=== PATIENT | female | born 1940 | race Caucasian/White ===

== ENCOUNTER 2017-06-13 10:27 | Inpatient (IN) ==
[2017-06-13 11:06] LABS: MANUAL DIFF NEEDED? NO
[2017-06-13 11:14] LABS: BASO% 0.4 % (0.0-0.8); EOS# 0.19 X1000 (0.0-0.7); EOS% 3.4 % (0.0-10.0); HEMATOCRIT 34.7 % (37.0-47.0); LYMPH# 0.92 X1000 (1.2-3.4); LYMPH% 16.5 % (20.5-51.1); MCH 25.8 PG (27-31); MCHC 31.7 g/dL (33-37); MCV 81.5 FL (81-99); MONO# 0.52 X1000 (0.11-0.59); MONO% 9.3 % (1.7-9.3); MPV 10.3 FL (7.4-10.4); NEUT% 70.4 % (42.2-75.2); PLT 516 X1000 (130-400); RBC 4.26 XMIL (4.2-5.4)
[2017-06-13 11:27] LABS: AGAP 14; ALBUMIN 3.3 g/dL (3.5-5.0); ALKALINE PHOSPHATASE 110 U/L (32-104); BUN 20 mg/dL (8-22); CALCIUM 8.6 mg/dL (8.8-10.2); CHLORIDE 98 mmol/L (98-107); COSMO 276; GOT 26 U/L (10-30); GPT 19 U/L (10-36); POTASSIUM 3.8 mmol/L (3.5-5.1); SODIUM 137 mmol/L (136-145); TCO2 25 mmol/L (25-35); TOTAL BILIRUBIN 0.27 mg/dL (0.20-1.00); TOTAL PROTEIN 6.4 g/dL (6.3-8.3)
[2017-06-13] MEDS ORDERED: PERCOCET-5 PO ONE (11:59)
--- NOTE | 2017-06-13 12:38 | Diag Imaging Result Doc PS360 ---
FEMUR MIN 2 VIEWS RIGHT - 06/13/2017 INDICATION: Fall TECHNIQUE: Two views COMPARISON: None FINDINGS: Bones are intact and normally aligned. Joint spaces and soft tissues are clear. IMPRESSION: Negative exam. Electronically signed by Dino Pinzon 06/13/2017 12:36 PM
--- NOTE | 2017-06-13 12:39 | Diag Imaging Result Doc PS360 ---
KNEE 3 VIEWS RIGHT - 06/13/2017 INDICATION: Fall TECHNIQUE: COMPARISON: None FINDINGS: There is some calcified peripheral vascular disease of the popliteal artery. Bones are intact and normally aligned. Joint spaces and soft tissues are clear. IMPRESSION: Negative exam. Electronically signed by Dino Pinzon 06/13/2017 12:36 PM
--- NOTE | 2017-06-13 12:41 | Diag Imaging Result Doc PS360 ---
XRAY PELVIS W/HIP 2-3VW RT - 06/13/2017 INDICATION: Fall/pain TECHNIQUE: Three views COMPARISON: None FINDINGS: There is a transverse minimally displaced fracture through the tip of the greater trochanter. No femoral neck or intertrochanteric fracture visible. IMPRESSION: Greater trochanter fracture of the right proximal femur. Electronically signed by Dino Pinzon 06/13/2017 12:39 PM
--- NOTE | 2017-06-13 12:50 | Diag Imaging Result Doc PS360 ---
LUMBAR SPINE - 06/13/2017 INDICATION: Fall TECHNIQUE: Six views COMPARISON: None FINDINGS: There is mild exaggeration of the normal lumbar lordosis. No fracture or subluxation. There is dense vascular disease with calcification of the aortic bifurcation. Vertebral body heights are preserved. Disc spaces are fairly well preserved. There is significant facet degeneration at all the levels from L3-S1 bilaterally. There is also some degeneration of the sacroiliac joints. IMPRESSION: Degenerative changes. No definite acute injury. Electronically signed by Dino Pinzon 06/13/2017 12:48 PM
[2017-06-13 14:03] LABS: URINE SOURCE CLEAN CATCH
[2017-06-13 14:06] LABS: BILIRUBIN URINE NEGATIVE (NEGATIVE); BLOOD URINE MODERATE (NEGATIVE); COLOR ORANGE; GLUCOSE URINE NEGATIVE (NEGATIVE); LEUKOCYTES URINE LARGE (NEGATIVE); NITRITE URINE POSITIVE (NEGATIVE); PROTEIN URINE TRACE mg/dL (NEGATIVE); SP GRAVITY URINE 1.009; TURBIDITY URINE TURBID (CLEAR); UROBILINOGEN URINE NORMAL (NORMAL)
[2017-06-13 14:08] LABS: URINE MICRO REVIEW NEEDED? YES
[2017-06-13 14:11] LABS: UR EPITHELIAL CELLS <10 /HPF (<10); URINE BACTERIA 4+ /HPF; URINE CULTURE NEEDED? YES; URINE RBC TNTC /HPF (<10); URINE WBC TNTC /HPF (<10)
[2017-06-13 14:22] LABS: URINE CASTS GRANULAR PRESENT; URINE CRYSTALS NONE SEEN
--- NOTE | 2017-06-13 14:52 | Diag Imaging Result Doc PS360 ---
CT PELVIS W/O CONTRAST - 06/13/2017 INDICATION: R hip fracture ed10 TECHNIQUE: A CT dose reduction protocol was used. COMPARISON: Prior x-ray FINDINGS: There is a comminuted mildly displaced fracture of the right greater trochanter. This involves the base of the femoral neck posteriorly but not anteriorly. The urinary bladder is very distended. There is mild constipation. No dislocations. IMPRESSION: Comminuted fracture of the right greater trochanter with a fracture line entering the posterior cortex of the femoral neck. Remainder of the femoral neck is intact. Electronically signed by Dino Pinzon 06/13/2017 2:49 PM
--- NOTE | 2017-06-13 15:20 | PROVIDER DOCUMENTATION ---
This chart was entered by Jessica Arevalo Scribe, acting as scribe for Lacy Kirby MD. HPI-Musculoskeletal Pain/Inj - GENERAL Chief Complaint: Extremity Pain Stated Complaint: fall, rt hip, rt leg pain Time Seen by Provider: 06/13/17 11:15 Source: patient - HX OF PRESENT ILLNESS-MUSKULOSKELTAL Nature of Presenting Problem: Pt is a 76 year old female who came to the ED with a cc of not being able to get out of bed for six hours. Pt fell about two and a half weeks ago and hurt her right hip and followed up with her pcp and nothing was broken. Pt reports the symptoms are worsening and the pain is radiating from her right hip down to her right knee. Pt reports she has urinary incontinence. Denies chest pain, n/v , and fever. Quality of Pain: reports: sharp Severity in ED: moderate Onset/Duration: gradual Timing: still present Modifying Factors: improves with: movement Any recent injury?: Yes (two weeks ago fell on right hip ) Locality of Occurance: Home Similar Symptoms Previously?: No Recently seen or treated by another doctor?: Yes - FALL INJURY Location of Pain/Injury: reports: pelvis (right hip) Pain Radiation: reports: legs (lower) Reason for Fall: reports: unknown Loss of Consciousness: no loss of consciousness Injury Associated Symptoms: reports: weakness, trouble walking Review of Systems - Adult - REVIEW OF SYSTEMS - ADULT Constitutional: denies: chills, fever Eyes: denies: blurred vision, double vision Ears, Nose, Mouth & Throat: reports: no symptoms reported Cardiovascular: reports: no symptoms reported Respiratory: denies: cough, shortness of breath Gastrointestinal: reports: no symptoms reported Genitourinary: reports: no symptoms reported Musculoskeletal: reports: bone pain (right hip and leg), muscle weakness. denies: joint pain, joint swelling, neck pain Integumentary: reports: no symptoms reported Neurological: denies: ataxia, numbness, seizure Psychiatric: reports: no symptoms reported Endocrine: reports: no symptoms reported Hematologic/Lymphatic: reports: no symptoms reported Allergic/Immunologic: reports: no symptoms reported All Other Systems: Reviewed and Negative Past History - Adult - PAST MEDICAL HISTORY-ADULT Review of Records: reports: Old Records Reviewed, Nursing Assessment Review Major Childhood Illnesses: reports: denies history Cardiovascular: reports: HTN Respiratory: reports: denies history Gastrointestinal: reports: denies history Obstetrical/Gynecological: reports: denies history Genitourinary: reports: denies history Musculoskeletal: reports: denies history Neurological: reports: CVA, Parkinson's Endocrine/Immune: reports: denies history Other Conditions: reports: denies history - IMMUNIZATION STATUS Childhood Immunizations: See Nurse Assessment Flu Vaccine: See Nurse Assessment - FAMILY HISTORY Family History: reviewed, not pertinent Physical Exam-Injury Related - Physical Exam-Injury Related Initial Vital Signs Reviewed: Yes General Appearance: alert, mild distress Eyes: PERRL/EOMI, pink conjunctivae Head, Ears, Nose, Mouth & Throat: normocephalic/atraumatic, moist mucous membranes Neck: non-tender, full range of motion Respiratory: chest non-tender, lungs clear, normal breath sounds Cardiovascular: normal peripheral pulses, regular rate, rhythm Abdominal Exam: normal bowel sounds, non tender, soft Back Exam: normal inspection, no CVA tenderness Extremity: pedal edema (right leg 1+), tenderness (right hip unable to bear weight and bend. The right hip there is a healing bruise.). negative: normal gait Integumentary: normal color, warm/dry Neurologic: grossly normal Psych/Mental Status: normal mood/affect, normal thought content, normal thought process, oriented x 3 - Glascow Coma Score Best Eye Response ([place]): (4) open spontaneously Best Verbal Response ([place]): (5) oriented Best Motor Response ([place]): (6) obeys commands [place] Total: 15 Progress - PLAN OF CARE/RESULTS Progress/Plan/Lab Results: Vital Signs - 8 hr 06/13/17 10:42 06/13/17 14:08 Temperature 97.5 F L 98.2 F Pulse Rate 69 79 Respiratory Rate 16 18 Blood Pressure 178/85 172/76 O2 Sat by Pulse Oximetry 97 100 Laboratory Results - last 24 hr 06/13/17 06/13/17 06/13/17 10:54 10:54 10:54 WBC 5.57 RBC 4.26 Hgb 11.0 L Hct 34.7 L MCV 81.5 MCH 25.8 L MCHC 31.7 L RDW Std Deviation 17.9 H Plt Count 516 H MPV 10.3 Immature Gran % (Auto) 0.0 Neut % (Auto) 70.4 Lymph % (Auto) 16.5 L [place] % (Auto) 9.3 Eos % (Auto) 3.4 Baso % (Auto) 0.4 Immature Gran # (Auto) 0.00 Neut # (Auto) 3.92 Lymph # (Auto) 0.92 L [place] # (Auto) 0.52 Eos # (Auto) 0.19 Baso # (Auto) 0.02 D-Dimer 0.96 H Sodium 137 Potassium 3.8 Chloride 98 Carbon Dioxide 25 Anion Gap 14 BUN 20 Creatinine 0.6 Estimated GFR/1.73 m2 > 60 BUN/Creatinine Ratio 33 Glucose 84 Calculated Osmolality 276 Calcium 8.6 L Magnesium Total Bilirubin 0.27 AST 26 ALT 19 Alkaline Phosphatase 110 H Total Protein 6.4 Albumin 3.3 L Globulin 3.1 Albumin/Globulin Ratio 1.1 Urine Source Urine Color Urine Turbidity Urine pH Ur Specific [place] Urine Protein Ur Glucose (Stick) Ur Ketones (Stick) Urine Blood Urine Nitrite Urine Bilirubin Urobilinogen Dipstick Urine Leukocytes Urine WBC (Auto) Urine RBC (Auto) U Epithel Cells (Auto) Urine Bacteria (Auto) Urine Crystals Small Round Cells Urine Casts Urine Yeast-like Cells 06/13/17 06/13/17 10:54 13:48 WBC RBC Hgb Hct MCV MCH MCHC RDW Std Deviation Plt Count MPV Immature Gran % (Auto) Neut % (Auto) Lymph % (Auto) [place] % (Auto) Eos % (Auto) Baso % (Auto) Immature Gran # (Auto) Neut # (Auto) Lymph # (Auto) [place] # (Auto) Eos # (Auto) Baso # (Auto) D-Dimer Sodium Potassium Chloride Carbon Dioxide Anion Gap BUN Creatinine Estimated GFR/1.73 m2 BUN/Creatinine Ratio Glucose Calculated Osmolality Calcium Magnesium 1.7 Total Bilirubin AST ALT Alkaline Phosphatase Total Protein Albumin Globulin Albumin/Globulin Ratio Urine Source CLEAN CATCH Urine Color ORANGE Urine Turbidity TURBID Urine pH 6.0 Ur Specific [place] 1.009 Urine Protein TRACE A Ur Glucose (Stick) NEGATIVE Ur Ketones (Stick) NEGATIVE Urine Blood MODERATE A Urine Nitrite POSITIVE A Urine Bilirubin NEGATIVE Urobilinogen Dipstick NORMAL Urine Leukocytes LARGE A Urine WBC (Auto) TNTC A Urine RBC (Auto) TNTC A U Epithel Cells (Auto) <10 Urine Bacteria (Auto) 4+ Urine Crystals NONE SEEN Small Round Cells Not Reportable Urine Casts GRANULAR PRESENT Urine Yeast-like Cells PRESENT Orders Category Date Time Status CT PELVIS W/O CONTRAST [CT] Stat Exams 06/13/17 14:11 Completed FEMUR MIN 2 VIEWS RIGHT [RAD] Stat Exams 06/13/17 11:56 Completed KNEE 3 VIEWS RIGHT [RAD] Stat Exams 06/13/17 11:56 Completed LUMBAR SPINE [RAD] Stat Exams 06/13/17 11:56 Completed XRAY PELVIS W/HIP 2-3VW RT [RAD] Stat Exams 06/13/17 11:56 Completed CBC WITH DIFF [HEME] Stat Lab 06/13/17 10:54 Completed CMP [COMPREHENSIVE METABOLIC PANEL] [CHEM] Stat Lab 06/13/17 10:54 Completed D-DIMER [CHEM] Stat Lab 06/13/17 10:54 Completed MAGNESIUM [CHEM] Stat Lab 06/13/17 10:54 Completed UA NIMS W/REFLEX CULT [URINALYSIS] Stat Lab 06/13/17 13:48 Completed URINE CULTURE [RM] Routine Lab 06/13/17 14:43 Received URINE MANUAL MICROSCOPIC [URINALYSIS] Stat Lab 06/13/17 13:48 Completed Oxycodone/APAP 5 mg/325 mg [Percocet-5] Med 06/13/17 11:59 Discontinued 1 each PO NOW ONE Venous U/S Right Leg Stat Ther 06/13/17 11:56 Completed Result Diagrams: 06/13/17 10:54 06/13/17 10:54 - XRAY 1 XRAY Study: Lumbar Spine (NAD) 2 XRAY: Right XRAY Study: Femur (negative), Knee (negative) 3 XRAY: Right XRAY Study: Hip (great trochanter fx of the right proximal femur) - CT/MRI 1 CT Study: Pelvis (COMMINUTED FX OF THE RIGHT GREATER TROCHANTER WITH A FX LINE ENTERING THE POSTERIOR CORTEX OF THE FEMORAL NECK. REMAINDER OF THE FEMORAL NECK IS INTACT.) - ULTRASOUND (By Radiology) 1 US Study: Lower Ext (no DVT) - CONSULTS/PCP/HOSPITALIST Notification #1 *Consult/PCP/Hospitalist*: Dr. Parrish Time Discussed: 14:35 (Dr. Parrish wants a CT of the hip and will call back. ) Time Discussed: 15:19 Reason/Comments: Admit to Dr. Kyle and will see pt tomorrow AM Consult Disposition: Admit Time Discussed: 15:20 Reason/Comments: Saroj Consult Disposition: Admit Departure - Departure Date of Disposition Decision: 06/13/17 Time of Disposition Decision: 15:15 DIAGNOSIS: Fracture of femoral neck, right Disposition: ADMITTED INPATIENT 09 Certified Medical Emergency: Emergent Condition: Stable Referrals and Follow-Ups: Moustapha Kyle MD [Primary Care Provider] - - Critical Care Note This patient required my direct & personal management of CC.: No Attestation - Physician/ FREDO Attestation Patient care was provided by Advanced Practice Provider:: No The physician spent face to face time with patient:: Yes Advanced Practice Provider documentation review:: Supervising physician onsite and consulted in the evaluation and care of this patient. The physician did have a face to face encounter with the patient. This chart was documented by the indicated scribe, (Jessica Arevalo Scribe) and accurately reflects the services I performed and decisions made by me, Lacy Kirby MD, as attested by the provider's signature.
[2017-06-13] MEDS ORDERED: ROCEPHIN 1 GM in NS 50 ML IV ONE (15:52)
[2017-06-13 18:50] LABS: URINE MICRO REVIEW NEEDED? NO; URINE SOURCE CATH
[2017-06-13] MEDS ORDERED: MIRALAX PO ONE (18:50)
[2017-06-13] MEDS ORDERED: ZOFRAN IV PRN (18:51)
[2017-06-13] MEDS ORDERED: NS 1,000 ML IV SCH (19:00)
[2017-06-13 19:02] LABS: BILIRUBIN URINE NEGATIVE (NEGATIVE); BLOOD URINE NEGATIVE (NEGATIVE); COLOR YELLOW; GLUCOSE URINE NEGATIVE (NEGATIVE); LEUKOCYTES URINE NEGATIVE (NEGATIVE); NITRITE URINE POSITIVE (NEGATIVE); PROTEIN URINE NEGATIVE (NEGATIVE); SP GRAVITY URINE 1.009; TURBIDITY URINE CLEAR (CLEAR); UROBILINOGEN URINE NORMAL (NORMAL)
[2017-06-13 19:04] LABS: UR EPITHELIAL CELLS <10 /HPF (<10); URINE BACTERIA 4+ /HPF; URINE CULTURE NEEDED? YES; URINE RBC <10 /HPF (<10); URINE WBC <10 /HPF (<10)
[2017-06-13] MEDS: LEVAQUIN 500 MG/D5W 500 MG/100 ML IVPB IV SCH (20:23)
[2017-06-13] MEDS: PROTONIX IV SCH (20:24)
[2017-06-13] MEDS: SODIUM CHLORIDE 0.9% INJ SCH (20:24)
[2017-06-13] MEDS: NUBAIN IV PRN (20:31)
--- NOTE | 2017-06-13 21:28 | HISTORY AND PHYSICAL ---
CHIEF COMPLAINT: Right hip pain since 2 weeks ago. HISTORY OF PRESENT ILLNESS: She is a 76-year-old white female, who was evaluated in my office on 06/01/2017. She had a fall and sustained an injury over the weekend in the clinic. X-rays were read no acute bony injury. She did evaluate in my office and she was walking with a walker. She has minimal pain. I did review the x-rays with the radiologist, Dr. Abrams, and no significant fracture identified. Family was discussed about these findings. If no better, consider bone scan or CTA. Apparently according to the daughter, she is progressively worsening, not able to get up and do her activities this morning, and brought to the emergency room. In the ER repeat x-ray showed greater trochanter fracture which is obviously visible at this present time. CT of the neck of the pelvis bone revealed greater trochanter committed fracture extending into the neck. Dr. Parrish was consulted. She has been hospitalized for right hip fracture basically for further evaluation. She also has UTI, dehydration and constipation. We will discuss with Dr. Parrish in the morning about the plan of care. PAST MEDICAL HISTORY: COPD, Colles fracture on the right, hypertension, hypothyroidism, osteoporosis, Parkinson disease, pulmonary hypertension, history of lacunar stroke on the left side, uterine prolapse. PAST SURGICAL HISTORY: Tonsillectomy, adenoidectomy. MEDICINES: Breo 1 puff daily, calcitriol 0.25 mcg daily, Sinemet 50/200 one tab p.o. b.i.d., losartan 100 daily, aspirin 80 mg daily, Spiriva 18 mcg daily, verapamil 180 mg daily. ALLERGIES: AXEL inhibitors for cough, hydrochlorothiazide. SOCIAL HISTORY: Single, 3 children. Lives in [place]. No smoking. Socially drinks alcohol. Retired. FAMILY HISTORY: Father of MD at 57. Mom of MD at 79. HEALTH MAINTENANCE: Flu vaccine 2015, mammography 2010, DEXA scan 10/2016, colonoscopy [address] Toure with angiodysplasia of the cecum and diverticulosis of internal hemorrhoids. REVIEW OF SYSTEMS: HEENT: No headache. No vision problem. No earache. No sore throat. Neck: No goiter. No lymphadenopathy. No bruit. Cardiopulmonary: No chest pain, shortness of breath, PND, orthopnea. GI: No nausea, vomiting, abdominal pain, constipation. : Urine is distended. Perez catheter was placed. Extremities: Pain in the right hip. No swelling of legs. Back: No back pain. Neurologic: No focal symptoms or weakness other than masked facies. No tremor, no rigidity. Physical ExaminationVital Signs: Afebrile, blood pressure is 180/99 room air, 90%. 4 feet 10, 97 pounds. HEENT: Atraumatic, normocephalic. Pupils equal, react to light. TMs are normal. Nose and throat within normal limits. Neck: Supple. No lymphadenopathy. No goiter. Chest: Bilateral air entry. No rales, no wheezing. Heart: Sounds are regular. Abdomen: Belly is soft, nontender. Good bowel sounds. No masses palpable. Extremities: No peripheral edema or cyanosis. Right hip was then Green's traction. Neurological: No obvious neurological deficits noted. Masked facies. No rigidity and no tremor noted at this time. INVESTIGATIONS: CBC: White cell count 5.5, hematocrit 34, platelets 516,000. D-dimer 0.96. SMA 7 is normal. Calcium 8.6, magnesium 1.7. LFTs were normal. Urinalysis positive for infection. CT pelvis: Comminuted fracture of the right greater trochanter with a fracture line entering into the femoral neck. Lumbar spine x-ray: DJD changes. No definitive acute injury noted. Knee x- ray: Negative exam. Hip and pelvis x-ray: Greater trochanter fracture of the right proximal femur. Femur x-ray negative. ASSESSMENT AND PLAN: 1. A 76-year-old white female, admitted to the hospital with right hip fracture with underlying severe osteoporosis. She has a high risk for displacement. Probably will need a surgical fixation and we will discuss with Dr. Parrish. 2. Constipation. Laxatives as directed. 3. Urinary tract infection. IV Levaquin. 4. Deep vein thrombosis and GI prophylaxis with Lovenox and Protonix, respectively. 5. Ortho consult with Dr. Parrish. 6. Reconcile home medications which includes osteoporosis with calcium and calcitriol. 7. Chronic obstructive pulmonary disease. On Breo. 8. Hypertension. On losartan and verapamil. 9. History of Parkinson disease. On carbidopa twice daily. 10. Discussed with the family members and we will follow up pending labs in the morning. cc: Kei Kyle MD
[2017-06-14] MEDS: NUBAIN IV PRN (03:29)
[2017-06-14 05:07] LABS: MANUAL DIFF NEEDED? NO
[2017-06-14 05:24] LABS: BASO% 0.2 % (0.0-0.8); EOS# 0.24 X1000 (0.0-0.7); EOS% 2.7 % (0.0-10.0); HEMATOCRIT 32.6 % (37.0-47.0); HEMOGLOBIN 10.4 g/dL (12.0-16.0); IMM GRAN# 0.02 X1000 (0.0-0.04); IMM GRAN% 0.2 % (0.0-0.5); LYMPH# 0.88 X1000 (1.2-3.4); LYMPH% 9.8 % (20.5-51.1); MCH 25.9 PG (27-31); MCHC 31.9 g/dL (33-37); MCV 81.3 FL (81-99); MONO# 0.88 X1000 (0.11-0.59); MONO% 9.8 % (1.7-9.3); MPV 10.7 FL (7.4-10.4); NEUT% 77.3 % (42.2-75.2); PLT 449 X1000 (130-400); RBC 4.01 XMIL (4.2-5.4)
[2017-06-14 05:32] LABS: AGAP 12; BUN 13 mg/dL (8-22); CALCIUM 8.4 mg/dL (8.8-10.2); CHLORIDE 100 mmol/L (98-107); COSMO 273; POTASSIUM 3.7 mmol/L (3.5-5.1); SODIUM 137 mmol/L (136-145); TCO2 25 mmol/L (25-35)
--- NOTE | 2017-06-14 08:12 | CONSULTATION ---
DATE OF CONSULTATION: 06/14/2017 HISTORY OF PRESENT ILLNESS: Ms. Ace is a 76-year-old female, who presented to the emergency department for continued right hip pain. She fell about 2 and a half weeks ago and injured this right hip. Over the past 2 weeks, she has been using a walker but the pain has gotten a little bit worse on this right side, and she is even getting some pain radiating down toward the knee. She was admitted for pain control and orthopedics was consulted for evaluation. Most her pain is at the right hip. It is worse when she is up and on it. It does feel better when she stays off of it. PAST MEDICAL HISTORY: COPD, pulmonary hypertension, Parkinson's, osteoporosis. PAST SURGICAL HISTORY: Tonsillectomy, adenoidectomy. ALLERGIES: AXEL inhibitor, hydrochlorothiazide. MEDICATIONS: Per the medical chart. SOCIAL HISTORY: She lives by herself. She denies any smoking or alcohol use. FAMILY HISTORY: Positive for heart problems. REVIEW OF SYSTEMS: Positive for this right hip pain. All other systems are essentially negative. PHYSICAL EXAMINATION: General: Well-developed, well-nourished female in no acute distress. Head and Neck: Normocephalic, atraumatic. Respirations: Nonlabored breathing. Cardiovascular: She has a 2+ DP pulse. Abdomen: Nondistended. Right lower extremity exam: She has some tenderness to palpation at the hip laterally and a little bit of tenderness to palpation at the knee but not too bad. She has no effusion at the knee. No swelling at the knee either. foot she has 2+ DP pulse there. She can move all her toes, and she got a little bit of lymphedema throughout the ankle and foot. No tenderness to palpation to the left lower extremity or bilateral upper extremities. IMAGING: Radiographs of the right hip shows what appears to be a greater trochanter fracture with a little bit of displacement. CT scan shows the same thing. It does not look like that fracture goes down into the calcar or into the neck. ASSESSMENT: Right greater trochanter fracture. PLAN: I discussed with Ms. Watkins and her family about greater trochanter fractures. I would recommend treating this nonoperatively. I am okay with her being up to a chair though, especially for all meals. She will be touchdown weightbearing right lower extremity. We will get physical therapy to start working with her and, since she does live alone, it is going to be difficult for her to return home as of now, and so I will push to get a rehab stay when she leaves the hospital here. I will check on her in the morning. cc: MD Kei Hart MD
[2017-06-14] MEDS: MIRALAX PO SCH (08:47)
[2017-06-14] MEDS: SINEMET CR 25/100 PO SCH (08:49)
[2017-06-14] MEDS: COZAAR PO SCH (08:49)
[2017-06-14] MEDS: TUMS EXTRA STRENGTH PO SCH (08:49)
[2017-06-14] MEDS: COLACE PO SCH (08:49)
[2017-06-14] MEDS: ROCALTROL PO SCH (08:49)
[2017-06-14] MEDS: ISOPTIN SR PO SCH (08:50)
[2017-06-14] MEDS: LOVENOX SUBQ SCH (08:50)
[2017-06-14] MEDS: SPIRIVA INH SCH (10:19)
[2017-06-14] MEDS: BREO ELLIPTA 100/25 MCG INH INH SCH (10:19)
[2017-06-14] MEDS: NORCO-5 PO PRN ×2 (10:35→21:45)
[2017-06-14] MEDS ORDERED: MILK OF MAGNESIA PO PRN (16:40)
[2017-06-14] MEDS ORDERED: MILK OF MAGNESIA PO ONE (16:40)
[2017-06-14] MEDS: SODIUM CHLORIDE 0.9% INJ SCH (18:20)
[2017-06-14] MEDS: LEVAQUIN 500 MG/D5W 500 MG/100 ML IVPB IV SCH (18:20)
[2017-06-14] MEDS: PROTONIX IV SCH (18:20)
--- NOTE | 2017-06-14 18:27 | PROGRESS NOTE ---
DATE: 06/14/2017 SUBJECTIVE: Interval history was reviewed. The patient was seen by Dr. Parrish. He has recommended nonoperative management. Green's traction was pulled out. She was given laxatives as well as IV antibiotics. REVIEW OF SYSTEMS: Blood pressure is running high. No headache. No dizziness. No chest pain, shortness of breath, PND, orthopnea.GI: No nausea, vomiting, abdominal pain. PHYSICAL EXAMINATION: Vital signs: Afebrile. Blood pressure is 150/76, 92% on room air. Input and output are positive 837 mL. HEENT: Atraumatic, normocephalic. Pupils equal, reactive to light. TMs are normal. Nose and throat within normal limits. Neck: Supple. No lymphadenopathy. No goiter. Chest: Bilateral air entry. Heart: Sounds are regular. Abdomen: Belly is soft, nontender. Good bowel sounds. Neurologic: No neurological deficits. INVESTIGATIONS: CBC, white cell count 9.0, hematocrit 32, platelets 449,000. SMA 7 is normal. LFTs were normal. Urinalysis is positive for infection. Gram-negative rods. ASSESSMENT AND PLAN: 1. Right hip greater trochanteric fracture, off Green's traction. Nonoperative management. Pain control with [place] and physical therapy. 2. Urinary tract infection on IV Levaquin. 3. Advance the diet. Discontinue IV fluids. 4. Deep venous thrombosis prophylaxis with Lovenox. Venous Dopplers were negative. 5. Parkinson's disease. Sinemet 2 tablets daily. 6. Hypertension. Continue on verapamil and losartan. Family has agreed with ortho consult opinion and we will follow up. Level of documentation is 25 minutes. cc: Kei Kyle MD
[2017-06-15] MEDS: NUBAIN IV PRN (00:45)
[2017-06-15] MEDS: SPIRIVA INH SCH (08:09)
[2017-06-15] MEDS: BREO ELLIPTA 100/25 MCG INH INH SCH (08:10)
[2017-06-15] MEDS ORDERED: DULCOLAX PR PRN (09:00)
[2017-06-15] MEDS ORDERED: DULCOLAX PR ONE (09:03)
[2017-06-15] MEDS ORDERED: DULCOLAX PO PRN (09:31)
[2017-06-15] MEDS: COLACE PO SCH (09:58)
[2017-06-15] MEDS: TUMS EXTRA STRENGTH PO SCH (09:58)
[2017-06-15] MEDS: ISOPTIN SR PO SCH (09:59)
[2017-06-15] MEDS: COZAAR PO SCH (09:59)
[2017-06-15] MEDS: ROCALTROL PO SCH (09:59)
[2017-06-15] MEDS: SINEMET CR 25/100 PO SCH (10:01)
[2017-06-15] MEDS: MIRALAX PO SCH (10:02)
[2017-06-15] MEDS: LOVENOX SUBQ SCH (10:03)
[2017-06-15] MEDS: NORCO-5 PO PRN ×2 (16:46→21:51)
[2017-06-15] MEDS: SODIUM CHLORIDE 0.9% INJ SCH (18:27)
[2017-06-15] MEDS: LEVAQUIN 500 MG/D5W 500 MG/100 ML IVPB IV SCH (18:28)
[2017-06-15] MEDS: PROTONIX IV SCH (18:28)
--- NOTE | 2017-06-15 18:37 | PROGRESS NOTE ---
DATE: 06/15/2017 SUBJECTIVE: The patient is doing well. Out of the bed. Urine cultures came back E. coli. No complaints. Had a BM. REVIEW OF SYSTEMS: None reported. PHYSICAL EXAMINATION: Vital Signs: Afebrile. Vitals are stable. I's and O's are -393. HEENT Exam: Within normal limits. Neck: Supple. Chest: Clear. Heart: Sounds are regular. INVESTIGATIONS: None. ASSESSMENT AND PLAN: 1. Right greater trochanteric fracture. Discussed with orthopedics team. Continue nonoperative, nonweightbearing, pain control. Family agreeable. 2. Urinary tract infection. Intravenous Levaquin. 3. Constipation, resolving. 4. Hypertension, stable. Family is agreeable to go for rehab in the morning. LEVEL OF DOCUMENTATION: 25 minutes. cc: Kei Kyle MD
--- NOTE | 2017-06-15 23:11 | DISCHARGE SUMMARY ---
ADMISSION DATE: 06/13/2017 DISCHARGE DATE: 06/16/2017 DISCHARGING DIAGNOSIS: Right hip pain due to Greater trochanter fracture. SECONDARY DIAGNOSES: 1. Urinary tract infection with Escherichia coli, extended-spectrum beta- lactamase negative. 2. Chronic obstructive pulmonary disease. 3. Constipation, resolving. 4. Colles fracture on the right, stable. 5. Hypertension. 6. Hypothyroidism. 7. Osteoporosis. 8. Parkinson disease. 9. Pulmonary hypertension. 10. History of lacunar stroke on the left side. 11. Uterine prolapse. CONSULTATION: Azael Parrish MD BRIEF HISTORY: Please see the H and P that was done on 06/13/2017. In brief, she is a 76-year- old white female who was evaluated 2 weeks ago in my office with a fall and injury to the right hip. Initial x-rays did not show any definitive fracture. It was read by Dr. Abrams. I did review. There was no definitive fracture. Patient slowly limping, not able to walk, with more pain. Came to the ER. She was found to have a urinary tract infection, dehydration, constipation and right greater trochanter fracture. CT of the pelvis was done. It showed questionable extension to the femoral neck. Dr. Parrish and [facility] reviewed the pictures. We will give a chance for nonoperative medical management with no weightbearing for 2 months and if the attempts will not improve, then reconsider further evaluation. During this hospital course she was given IV fluids, IV antibiotics with Levaquin, laxatives for constipation, and Perez was discontinued. At the request of the family, the patient has been transferred to rehab. LABORATORY: CBC: White cell count 9, hematocrit 32, platelets 449,000. SMA7: Sodium 137, potassium 3.7, chloride 100, BUN 13, creatinine 0.6, glucose 85, calcium 8.4. LFTs were normal. Urine cultures show E. coli. RADIOLOGY PROCEDURES: Pelvic CT: Greater trochanter fracture, comminuted. Questionable extension to the posterior neck. Lumbar spine x-ray. DJD changes. No acute injury. Knee x-ray: Negative exam. Femur x-ray: Negative exam. DISCHARGE INSTRUCTIONS TO THE REHAB FOLLOWS: 1. No weightbearing on the right hip as per Dr. Parrish. 2. Pneumococcal vaccine prior to the discharge. 3. Spiriva 1 inhalation daily. Breo 1 inhalation in the morning. Carbidopa/ levodopa 1 tablet p.o. b.i.d. Aspirin 81 mg daily. Losartan 100 daily. Verapamil 180 daily. Calcitriol 0.25 mcg daily. Tums 750 daily. [place] 5, 1 tablet daily. Colace 100 p.o. b.i.d. MiraLAX 17 mg every other day for constipation. Levaquin 500 daily for 7 days. Deep venous thrombosis prophylaxis, Xarelto 10 mg daily. 4. Follow up in my office in 10 days as [address] as Dr[address] Parrish. cc: Kei Kyle MD MTDD
[2017-06-16] MEDS: BREO ELLIPTA 100/25 MCG INH INH SCH (07:48)
[2017-06-16] MEDS: SPIRIVA INH SCH (07:48)
[2017-06-16] MEDS ORDERED: PREVNAR 13 IM ONE (08:19)
[2017-06-16] MEDS: SINEMET CR 25/100 PO SCH (09:56)
[2017-06-16] MEDS: MIRALAX PO SCH (09:56)
[2017-06-16] MEDS: ROCALTROL PO SCH (09:57)
[2017-06-16] MEDS: ISOPTIN SR PO SCH (09:57)
[2017-06-16] MEDS: COZAAR PO SCH (09:57)
[2017-06-16] MEDS: COLACE PO SCH (09:57)
[2017-06-16] MEDS: TUMS EXTRA STRENGTH PO SCH (09:57)
[2017-06-16] MEDS: LOVENOX SUBQ SCH (09:57)
--- NOTE | 2017-06-16 11:03 | PROGRESS NOTE ---
DATE: 06/16/2017 SUBJECTIVE: Ms. Ace is sitting up in her bedside chair this morning. She says her pain seems a lot better. She really only took 1 hydrocodone pill yesterday. Physical therapy has worked with her getting her up on the walker, but she is weak on bilateral upper extremities and so she cannot quite walk, because she just cannot hold herself up that much. OBJECTIVE: Right lower extremity exam: There is still a little bit of tenderness to palpation of the right hip. Otherwise right lower extremity looks good. ASSESSMENT: Right greater trochanter fracture. PLAN: I think Ms. Ace looks good overall. I am going to keep her touchdown weightbearing for at least 2 weeks. I will see her back in my clinic in 2 weeks. We will grab AP pelvis and right lateral hip film. If everything looks good, we could make her about 50% weightbearing, right lower extremity at that time and see how she does. She is going to rehab today, and like I said, I will see her back in 2 weeks in my clinic. cc: MD Kei Hart MD
--- NOTE | 2017-06-16 11:55 | Diag Imaging Result Doc PS360 ---
EXAM: CHEST-PORTABLE HISTORY: rehab TECHNIQUE: AP portable upright chest at 1130 COMMENT: There are no previous studies. There is ill-defined opacity over the left base and over the right apical region which may be due to pneumonia. The heart size is slightly enlarged. There may be COPD. IMPRESSION: Bronchopneumonia left lower lobe and right upper lobe. Advise follow-up. Electronically signed by Avinash Abrams 06/16/2017 11:52 AM
[2017-06-16 12:05] VITALS: BP 123/94
--- NOTE | 2017-06-16 16:23 | Extremity Venous Study ---
PROCEDURE NAME: Venous U/S Right Leg - 06/13/2017 RIGHT LOWER EXTREMITY VENOUS IMAGE STUDY: REFERRING PHYSICIAN: Dr. Kirby in the ED. INDICATION: The patient has right leg pain since a fall 2 weeks ago. FINDINGS: The right lower extremity is imaged. The common femoral, superficial femoral, deep femoral, popliteal, posterior tibial, peroneal, and greater saphenous are imaged. The left common femoral vein is imaged for comparison purposes. Doppler is used to evaluate the veins for spontaneity, phasicity, respiratory and distal augmentation. All veins are compressible. No intraluminal clot is seen. INTERPRETATION: No evidence of deep or superficial venous thrombosis in the right lower extremity veins identified. cc: MD Kei Cotton MD
== END 2017-06-16 12:09 ==
LOC: ED 10:27 → 4N 15:55
PROVIDERS: ADMIT Internal Medicine; ATTEND Internal Medicine